=== PATIENT | male | born 1960 | race Caucasian/White ===

== ENCOUNTER → 2018-02-21 13:43 | Outpatient (CLI) | payer OTHER | END | disposition home or self-care (01) | LOC: D.RAD 11:00 → D.RT 13:43 | DX: Z02.71 Encounter for disability determination (principal) ==

== ENCOUNTER 2018-03-18 11:43 | Emergency (ER) | payer MEDICAID ==
[~2018-03-18] VITALS: Ht 175.3 cm; Wt 90.0 kg
[2018-03-18 11:45] VITALS: BP 150/100; Ht 175.3 cm; Wt 90.0 kg
[2018-03-18] MEDS ORDERED: XANAX0.5 MG PO (11:48)
[2018-03-18] MEDS ORDERED: CYCLOBENZAPRINE10 MG PO (11:48)
[2018-03-18] MEDS ORDERED: ALBUTEROL SULF8.5 GM INH (11:49)
[2018-03-18] MEDS ORDERED: OMEPRAZOLE20 M1 PO (11:49)
[2018-03-18] MEDS ORDERED: ALBENZA200 MG PO (11:50)
== END 2018-03-18 14:19 | disposition home or self-care (01) ==
LOC: D.ER 11:43
DX: M54.16 Radiculopathy, lumbar region (principal); S32.019A Unspecified fracture of first lumbar vertebra, initial encounter for closed fracture; S32.049A Unspecified fracture of fourth lumbar vertebra, initial encounter for closed fracture; W10.9XXA Fall (on) (from) unspecified stairs and steps, initial encounter; Y93.89 Activity, other specified; Y92.017 Garden or yard in single-family (private) house as the place of occurrence of the external cause; I10 Essential (primary) hypertension; J44.9 Chronic obstructive pulmonary disease, unspecified; K21.9 Gastro-esophageal reflux disease without esophagitis; M51.36 Other intervertebral disc degeneration, lumbar region; F17.200 Nicotine dependence, unspecified, uncomplicated

== ENCOUNTER → 2018-03-23 16:21 | Outpatient (CLI) | payer MEDICAID ==
[2018-03-18 11:45] VITALS: BMI 29.3
[~2018-03-23 16:21] MED LIST: ALBENZA200 MG PO; ALBUTEROL SULF8.5 GM INH; CYCLOBENZAPRINE10 MG PO; OMEPRAZOLE20 M1 PO; XANAX0.5 MG PO
== END | disposition home or self-care (01) ==
LOC: D.RAD 16:21
DX: M54.2 Cervicalgia (principal)

== ENCOUNTER → 2018-04-25 15:05 | Outpatient (CLI) | payer MEDICAID ==
[2018-03-18 11:45] VITALS: BMI 29.3
== END | disposition home or self-care (01) ==
LOC: D.MRI 04-22 15:00
DX: M50.10 Cervical disc disorder with radiculopathy, unspecified cervical region (principal); M51.9 Unspecified thoracic, thoracolumbar and lumbosacral intervertebral disc disorder

== ENCOUNTER → 2018-05-25 14:41 | Outpatient (CLI) | payer MEDICAID ==
[2018-03-18 11:45] VITALS: BMI 29.3
== END | disposition home or self-care (01) ==
LOC: D.MRI 14:41
DX: M54.12 Radiculopathy, cervical region (principal)

== ENCOUNTER → 2018-06-20 12:26 | Outpatient (CLI) | payer MEDICAID ==
[2018-03-18 11:45] VITALS: BMI 29.3
== END | disposition home or self-care (01) ==
LOC: D.MRI 12:26
PROVIDERS: ATTEND Legal Medicine
DX: R22.2 Localized swelling, mass and lump, trunk (principal)

== ENCOUNTER 2018-10-28 16:40 | Emergency (ER) | payer MEDICAID ==
[~2018-10-28] VITALS: Ht 175.3 cm; Wt 90.0 kg
[2018-10-28 17:13] VITALS: Ht 175.3 cm; Wt 90.0 kg
[2018-10-28] MEDS ORDERED: TRAZODONE HCL150 MG PO (17:17)
[2018-10-28] MEDS ORDERED: NEURONTIN600 MG PO (17:17)
[2018-10-28] MEDS ORDERED: TORADOL10 MG PO (20:38)
[2018-10-28 20:53] VITALS: BP 124/90
== END 2018-10-28 20:53 | disposition home or self-care (01) ==
LOC: D.ER 16:40
DX: S20.211A Contusion of right front wall of thorax, initial encounter (principal); W22.8XXA Striking against or struck by other objects, initial encounter; Y93.89 Activity, other specified; Y92.89 Other specified places as the place of occurrence of the external cause

== ENCOUNTER → 2019-05-09 15:26 | Outpatient (CLI) | payer MEDICAID ==
[2018-10-28 17:13] VITALS: BMI 29.3
[~2019-05-09 15:26] MED LIST changes: +NEURONTIN600 MG PO; +TORADOL10 MG PO; +TRAZODONE HCL150 MG PO
== END | disposition home or self-care (01) ==
LOC: D.MRI 15:26
PROVIDERS: ATTEND Emergency Medicine
DX: M54.2 Cervicalgia (principal); M54.10 Radiculopathy, site unspecified

== ENCOUNTER → 2019-06-01 12:56 | Outpatient (CLI) | payer MEDICAID ==
[2018-10-28 17:13] VITALS: BMI 29.3
== END | disposition home or self-care (01) ==
LOC: D.RAD 12:56
PROVIDERS: ATTEND Emergency Medicine
DX: R05 Cough (principal); R50.9 Fever, unspecified; R63.4 Abnormal weight loss

== ENCOUNTER 2019-06-24 17:15 | Inpatient (IN) | payer MEDICAID ==
[~2019-06-24] VITALS: Ht 175.3 cm; Wt 84.4 kg
--- NOTE | 2019-06-24 20:00 | NUR ---
PT REFUSED ABG.
[2019-06-24 20:13] LABS: BASOPHILS 0.2 % (0-2); EOSINOPHILS 0.7 % (0-7); HEMATOCRIT 41.2 % (42.0-54.0); HEMOGLOBIN 13.7 g/dL (13.5-17.5); IMMATURE GRANULOCYTES 0.3 % (0-5); LYMPHOCYTES 24.5 % (15-50); MCHC 33.3 g/dL (31.0-37.0); MCV 90.4 fL (80.0-100.0); MEAN PLATELET VOLUME 9.4 fL (7.4-10.4); MONOCYTES 6.9 % (2-11); NEUTROPHILS 67.4 % (40-80); PLATELET COUNT 325 10x3/uL (130-400); RBC 4.56 10x6/uL (4.20-6.10); RDW 14.2 % (11.5-14.5)
[2019-06-24 20:26] LABS: CALC OSMOLALITY 277 mosm/kg (275-300); CALCIUM 8.5 mg/dL (8.5-10.1); CARBON DIOXIDE 25.4 mmol/L (21.0-32.0); CHLORIDE - SERUM 105 mmol/L (98-107); CREATININE - SERUM 1.2 mg/dL (0.6-1.3); GLUCOSE 99 mg/dL (74-106); POTASSIUM - SERUM 3.5 mmol/L (3.5-5.1); SODIUM 140 mmol/L (136-145); UREA NITROGEN 11 mg/dL (7-18); eGFR NON AFRICAN AMERICAN 66 mL/min (90-120)
[2019-06-24 20:42] LABS: ALBUMIN 3.5 g/dL (3.4-5.0); ALKALINE PHOSPHATASE 96 U/L (30-120); ALT (SGPT) 22 U/L (10-68); BILIRUBIN - TOTAL 0.22 mg/dL (0.2-1.3); C-REACTIVE PROTEIN 0.7 mg/dL (0.0-0.9); CKMB 0.5 U/L (0.0-3.6); CREATINE KINASE 77 UL (21-232); MAGNESIUM - SERUM 2.1 mg/dL (1.8-2.4)
[2019-06-24 20:45] LABS: TROPONIN-I < 0.017 ng/mL (0.000-0.060)
[2019-06-24 20:55] LABS: INR 0.94 (0.85-1.17); PROTIME 12.5 SECONDS (11.6-15.0)
--- NOTE | 2019-06-24 22:10 | NUR ---
PT RETURNED FROM RADIOLOGY AT THIS TIME. NO DISTRESS NOTED. COLOR WNL FOR RACE. RESPIRATIONS ARE EVEN AND UNLABORED. WILL CONTINUE TO MONITOR.
[2019-06-24 22:17] VITALS: BP 127/94
--- NOTE | 2019-06-24 22:18 | NUR ---
STARTED SECOND LITER NS AT THIS TIME.
[2019-06-25] VITALS (7 sets, daily range): BP systolic 108–165; BP diastolic 72–87; BMI 27.5
--- NOTE | 2019-06-25 05:31 | NUR ---
PATIENT LEFT FLOOR TO GO AND SMOKE. WILL AWAIT RETURN.
--- NOTE | 2019-06-25 05:40 | NUR ---
PATIENT RETURNED TO FLOOR. CALL LIGHT IN PLACE. WILL CONTINUE TO MONITOR.
[2019-06-25 06:26] LABS: BASOPHILS 0.1 % (0-2); EOSINOPHILS 0 % (0-7); HEMATOCRIT 37.8 % (42.0-54.0); HEMOGLOBIN 12.3 g/dL (13.5-17.5); IMMATURE GRANULOCYTES 0.1 % (0-5); LYMPHOCYTES 9.6 % (15-50); MCH 29.6 pg (26.0-34.0); MCHC 32.5 g/dL (31.0-37.0); MCV 91.1 fL (80.0-100.0); MEAN PLATELET VOLUME 9.6 fL (7.4-10.4); MONOCYTES 1.8 % (2-11); NEUTROPHILS 88.4 % (40-80); PLATELET COUNT 306 10x3/uL (130-400); RBC 4.15 10x6/uL (4.20-6.10); RDW 14.5 % (11.5-14.5)
[2019-06-25 06:37] LABS: ANION GAP 15.6 mmol/L (8-16); CALCIUM 8.2 mg/dL (8.5-10.1); CARBON DIOXIDE 21.2 mmol/L (21.0-32.0); CREATININE - SERUM 1.2 mg/dL (0.6-1.3); POTASSIUM - SERUM 3.8 mmol/L (3.5-5.1)
[2019-06-25 06:39] LABS: WBC 7.4 10x3/uL (4.8-10.8)
--- NOTE | 2019-06-25 08:02 | NUR ---
ALERT AND ORIENTED. C/O HEADACHE. NO S/S OF ACUTE DISTRESS NOTED. IV TO RIGHT AC, NS INFUSING @ 100ML/HR. SITE PATENT WITHOUT REDNESS OR SWELLING. SPIDER BITE TO BUTTOCK, HEALING. PATIENT STATED IT HAPPENED ABOUT 1 MONTH AGO. DENIES ANY NEEDS AT THIS TIME. CALL LIGHT IN REACH. WILL CONTINUE TO MONITOR.
--- NOTE | 2019-06-25 12:47 | NUR ---
I have reviewed this patient and I concur with the Shift Assessment completed by the Licensed Practical Nurse today this shift.
--- NOTE | 2019-06-25 18:20 | NUR ---
ALERT AND ORIENTED. NO C/O PAIN. NO S/S OF ACUTE DISTRESS NOTED. DENIES ANY NEEDS AT THIS TIME. CALL LIGHT IN REACH. WILL CONTINUE TO MONITOR.
--- NOTE | 2019-06-25 20:00 | NUR ---
ALERT SITTING UP IN BED, REPORTS GOOD PAIN RELIEF AFTER PAIN MED, SEE SHIFT ASSESSMENT, CALL LIGHT IN REACH
[2019-06-26] VITALS: BP 110/73
[2019-06-26 04:00] VITALS: BP 136/78
[2019-06-26 05:10] LABS: HEMATOCRIT 37.1 % (42.0-54.0); HEMOGLOBIN 11.8 g/dL (13.5-17.5); MCH 29.4 pg (26.0-34.0); MCHC 31.8 g/dL (31.0-37.0); MCV 92.3 fL (80.0-100.0); MEAN PLATELET VOLUME 9.7 fL (7.4-10.4); PLATELET COUNT 314 10x3/uL (130-400); RBC 4.02 10x6/uL (4.20-6.10); RDW 14.5 % (11.5-14.5); WBC 21.1 10x3/uL (4.8-10.8)
[2019-06-26 05:54] LABS: CALC OSMOLALITY 289 mosm/kg (275-300); CALCIUM 8.5 mg/dL (8.5-10.1); CARBON DIOXIDE 26.2 mmol/L (21.0-32.0); CHLORIDE - SERUM 109 mmol/L (98-107); GLUCOSE 126 mg/dL (74-106); POTASSIUM - SERUM 4.3 mmol/L (3.5-5.1); SODIUM 144 mmol/L (136-145); eGFR NON AFRICAN AMERICAN 81 mL/min (90-120)
[2019-06-26 06:13] LABS: UREA NITROGEN 14 mg/dL (7-18)
--- NOTE | 2019-06-26 07:05 | NUR ---
ALERT AND ORIENTED. NO C/O PAIN. NO S/S OF ACUTE DISTRESS NOTED. IV TO RIGHT UPPER ARM, NS INFUSING @ 100ML/HR. SITE PATENT WITHOUT REDNESS OR SWELLING. ON TELEMETRY 85 SR. DENIES ANY NEEDS AT THIS TIME. CALL LIGHT IN REACH. WILL CONTINUE TO MONITOR.
[2019-06-26 09:25] VITALS: BP 125/76
[2019-06-26 09:46] LABS: LYMPHOCYTES 10 % (15-50); MONOCYTES 10 % (2-11); NEUTROPHILS 79 % (40-80); PLATELET ESTIMATE NORMAL
[2019-06-26 09:47] LABS: ROULEAUX OCC
--- NOTE | 2019-06-26 11:11 | NUR ---
I have reviewed this patient and I concur with the Shift Assessment completed by the Licensed Practical Nurse today this shift.
--- NOTE | 2019-06-26 11:16 | NUR ---
PERIPHERAL IV TO RIGHT UPPER ARM INFILTRATED. DISCONTINUED WITH CATHETER TIP INTACT. RESITED IV TO LEFT WRIST, 22 GA X2 STICKS. BLOOD RETURN VISIBLE.
[2019-06-26 12:14] VITALS: BP 126/75
--- NOTE | 2019-06-26 16:37 | MORECARE ---
CASE MANAGEMENT DISCHARGE SUMMARY PATIENT: THONY TONEY UNIT: [id number] ADM DATE: 06/24/19 AGE: 59 : 62 SEX: M ROOM/BED: D.2236 AUTHOR: LAURA,DOC PHYSICIAN: REFERRING PHYSICIAN: ERICK LIZARRAGA MD DATE OF SERVICE: 06/26/19 Discharge Plan Patient Name: THONY TONEY Facility: [facility]:[place] : 1960 Planned Disposition: Home Anticipated Discharge Date: Discharge Date: Expected LOS: Initial Reviewer: [email or web address] Initial Review Date: 06/26/2019 Generated: 06/26/19 5:36 pm Comments DCP- Discharge Planning Updated by [email or web address]: Acacia Augustin on 06/26/19 3:[address] Patient Name: THONY TONEY Admission Status: ER Accout number: [id number] Admission Date: 06-24-2019 : 1960 Admission Diagnosis: Attending: FABIÁN Current LOS: 2 Anticipated DC Date: Planned Disposition: Home Primary Insurance: MEDICAID [place] Discharge Planning Comments: CM met with patient to complete initial dc planning assessment. CM educated patient on the CM role and verbal consent given by patient to complete assessment. Patient lives at home with his ex and many family members. At discharge patient plans to return and feels this is a safe discharge. CM discussed availability of home health, rehab services, and medical equipment. Patient denied known discharge needs at this time. States his daughter will take him home. CM will continue to follow and will assist as needed with dc plans/needs. Juice Packaging Machines Setter: Acacia Augustin DCPIA - Discharge Planning Initial Assessment Updated by [email or web address]: Acacia Augustin on 06/26/19 4:34 pm * Is the patient Alert and Oriented? Yes * How many steps to enter\exit or inside your home? 2/0 * PCP Dr. Lizarraga * Pharmacy [facility] [address] * Preadmission Environment Home with Family * ADLs Independent * Equipment Cane Walker * List name and contact numbers for known caregivers / representatives who currently or will assist patient after discharge: [facility] - [phone] * Verbal permission to speak to the caregivers and representatives has been obtained from the patient. Yes * Community resources currently utilized None * Additional services required to return to the preadmission environment? No * Can the patient safely return to the preadmission environment? Yes * Has this patient been hospitalized within the prior 30 days at any hospital? No Patient Name: THONY TONEY Page [id number] at 1637 All edits/amendments must be made on the electronic document DICTATION DATE: 06/26/191635 ROUTE SALES SPECIALIST: VIKASH 06/26/191635 RPT#: [id number] DC DATE: STATUS: ADM IN [facility] [address] [place] [address] END OF REPORT
[2019-06-26 17:39] VITALS: BP 107/69
--- NOTE | 2019-06-26 18:21 | NUR ---
ALERT AND ORIENTED. NO C/O PAIN. NO S/S OF ACUTE DISTRESS NOTED. DENIES ANY NEEDS AT THIS TIME. CALL LIGHT IN REACH. WILL CONTINUE TO MONITOR.
[2019-06-26 21:48] VITALS: BP 123/83
--- NOTE | 2019-06-27 00:42 | NUR ---
ELECTRODES PULLED OFF BY PT, REPLACED AND IN WORKING ORDER
[2019-06-27 01:07] VITALS: BP 137/74
[2019-06-27 05:19] LABS: BASOPHILS 0 % (0-2); EOSINOPHILS 0 % (0-7); HEMATOCRIT 38.2 % (42.0-54.0); HEMOGLOBIN 11.9 g/dL (13.5-17.5); IMMATURE GRANULOCYTES 0.6 % (0-5); LYMPHOCYTES 3.9 % (15-50); MCH 29.5 pg (26.0-34.0); MCHC 31.2 g/dL (31.0-37.0); NEUTROPHILS 92.5 % (40-80); PLATELET COUNT 353 10x3/uL (130-400); RBC 4.03 10x6/uL (4.20-6.10); RDW 14.7 % (11.5-14.5); WBC 19.8 10x3/uL (4.8-10.8)
[2019-06-27 05:22] LABS: MCV 94.8 fL (80.0-100.0)
[2019-06-27 05:32] LABS: CALCIUM 8.2 mg/dL (8.5-10.1); CHLORIDE - SERUM 105 mmol/L (98-107); CREATININE - SERUM 1.2 mg/dL (0.6-1.3); SODIUM 141 mmol/L (136-145); UREA NITROGEN 16 mg/dL (7-18); eGFR NON AFRICAN AMERICAN 66 mL/min (90-120)
[2019-06-27 05:33] LABS: CALC OSMOLALITY 285 mosm/kg (275-300); GLUCOSE 176 mg/dL (74-106); POTASSIUM - SERUM 3.4 mmol/L (3.5-5.1)
[2019-06-27 06:00] VITALS: BP 164/85
--- NOTE | 2019-06-27 07:31 | NUR ---
PATIENT REQUESTS A TALHA WATKINS. HAS EAR PHONES IN LISTENING TO MUSIC. SHIFT REPORT RECEIVED. CL IN REACH. TM
--- NOTE | 2019-06-27 09:00 | NUR ---
22 G IV THERAPY INFILTRATED IN LEFT FOREARM. RESTARTED WITH A 20 G IN LEFT FOREARM ONE ATTEMPT. CL IN REACH. WCTM
[2019-06-27 09:12] VITALS: BP 126/78
[2019-06-27 13:06] VITALS: BP 117/77
--- NOTE | 2019-06-27 13:26 | NUR ---
I have reviewed this patient and I concur with the Shift Assessment completed by the Licensed Practical Nurse today this shift.
--- NOTE | 2019-06-27 13:58 | NUR ---
PATIENT SITTING ON SIDE OF BED WATCHING TV. CL IN REACH. NO NEEDS AT THIS TIME. WCTM
--- NOTE | 2019-06-27 14:47 | NUR ---
WAS INFORMED PATIENT WANTED TO SEE ME. WENT TO ROOM WHEN I WAS DONE WITH THE PATIENT I WAS WITH. IV THERAPY IS OFF AND IN ROOM. PATIENT IS NOT IN ROOM.
[2019-06-27 17:03] VITALS: BP 138/88
--- NOTE | 2019-06-27 18:25 | NUR ---
PATIENT PROVIDED AN ISS. VERBALIZED UNDERSTANDING ON ITS USE. REQUESTED AND RECEIVED IMODIUM PER DR OCAMPO. DR OCAMPO STATED THE SKIN TAG/MOLE ON PATIENT CAN BE FROZEN OFF AT THE CLINIC. CL IN REACH. TM
--- NOTE | 2019-06-27 19:54 | NUR ---
PATIENT RESTING IN BED AND DENIES NEEDS AT THIS TIME. BED IN LOWEST POSITION AND CALL LIGHT WITHIN REACH. ENCOURAGED THE PATIENT TO CALL IF HE HAS NEEDS. WILL CONTINUE TO MONITOR.
[2019-06-27 20:00] VITALS: BP 137/88
--- NOTE | 2019-06-27 21:30 | NUR ---
ADMINISTERED MEDS PER ORDERS. PATIENT DENIES OTHER NEEDS AT THIS TIME. WILL CONTINUE TO MONITOR.
[2019-06-28] VITALS: BP 154/941
[2019-06-28 04:00] VITALS: BP 145/87
--- NOTE | 2019-06-28 07:00 | NUR ---
ALERT AND ORIENTED. NO C/O PAIN. NO S/S OF ACUTE DISTRESS NOTED. IV TO LEFT WRIST, NS INFUSING @ 100ML/HR. SITE PATENT WITHOUT REDNESS OR SWELLING. PRODUCTIVE COUGH. ON LOVENOX. NICOTINE PATCH TO RIGHT SHOULDER. BRUISING TO RIGHT UPPER ARM D/T IV INFILTRATION. ON TELEMETRY 94 SR. DENIES ANY NEEDS AT THIS TIME. CALL LIGHT IN REACH. WILL CONTINUE TO MONITOR.
[2019-06-28 09:06] VITALS: BP 147/91
[2019-06-28 12:50] VITALS: BP 128/77
[2019-06-28 14:38] VITALS: Ht 175.3 cm; Wt 84.4 kg
[2019-06-28 16:44] VITALS: BP 145/100
--- NOTE | 2019-06-28 18:19 | NUR ---
ALERT AND ORIENTED. NO C/O PAIN. NO S/S OF ACUTE DISTRESS NOTED. DENIES ANY NEEDS AT THIS TIME. CALL LIGHT IN REACH. WILL CONTINUE TO MONITOR.
--- NOTE | 2019-06-28 19:25 | NUR ---
MEDICATED WITH MORPHINE FOR C/O PAIN IN NECK RATING 10. ALERT AND ORIENTED X4. TALKATIVE WITH FLIGHT OF IDEAS. RESP IRREG. SOB WITH EXERTION. NONPROD COUGH. TELEMETRY SHOWS SR WITH RATE OF 83. AMBULATORY. NS @ 100 MLHR INFUSING IN LT WRIST. REFUSED SCDS. CL IN REACH.
[2019-06-28 20:00] VITALS: BP 124/94
--- NOTE | 2019-06-28 20:58 | NUR ---
IV LEAKING. IV CATH REMOVED. 22G INSERTED IN LT FOREARM X1 ATTEMPT.
--- NOTE | 2019-06-28 21:00 | NUR ---
SHOWER AT THIS TIME.
--- NOTE | 2019-06-28 23:50 | NUR ---
MEDICATED WITH MORPHINE FOR C/O PAIN IN NECK RATING 9. CL IN REACH.
--- NOTE | 2019-06-29 03:45 | NUR ---
HAS SLEPT WELL SO FAR THIS SHIFT. NO DISTRESS. CL IN REACH.
[2019-06-29 04:00] VITALS: BP 137/78
--- NOTE | 2019-06-29 05:33 | NUR ---
C/O H/A AND REQUESTS [facility]. REQUEST GRANTED.
[2019-06-29 06:33] LABS: BASOPHILS 0.1 % (0-2); EOSINOPHILS 0 % (0-7); HEMATOCRIT 34.1 % (42.0-54.0); HEMOGLOBIN 11.2 g/dL (13.5-17.5); IMMATURE GRANULOCYTES 1.7 % (0-5); LYMPHOCYTES 8.7 % (15-50); MCH 30.5 pg (26.0-34.0); MCHC 32.8 g/dL (31.0-37.0); MCV 92.9 fL (80.0-100.0); MEAN PLATELET VOLUME 9.8 fL (7.4-10.4); MONOCYTES 6.4 % (2-11); NEUTROPHILS 83.1 % (40-80); PLATELET COUNT 302 10x3/uL (130-400); RBC 3.67 10x6/uL (4.20-6.10); RDW 14.6 % (11.5-14.5); WBC 14.7 10x3/uL (4.8-10.8)
[2019-06-29 06:58] LABS: ANION GAP 14.2 mmol/L (8-16); CALCIUM 7.7 mg/dL (8.5-10.1); CARBON DIOXIDE 23.9 mmol/L (21.0-32.0); CREATININE - SERUM 1.1 mg/dL (0.6-1.3); POTASSIUM - SERUM 4.1 mmol/L (3.5-5.1)
--- NOTE | 2019-06-29 07:15 | NUR ---
PT SITTING UP IN BED WATCHING TV. IV LOCATED TO LEFT FOREARM CURRENTLY RUNNING NS @ 100ML/HR. BECOMES SHORT OF BREATH WHEN TALKING AND GETTING EXCITED. NO S/S OF DISTRESS NOTED AT THIS TIME, DENIES CURRENT NEEDS, WILL CONT TO MONITOR.
[2019-06-29] MEDS ORDERED: LEVOFLOXACIN500 MG PO (07:17)
[2019-06-29] MEDS ORDERED: MEDROL DOSE PACK4 MG PO (07:17)
[2019-06-29 09:06] VITALS: BP 140/90
--- NOTE | 2019-06-29 09:11 | MORECARE ---
CASE MANAGEMENT DISCHARGE SUMMARY PATIENT: THONY TONEY UNIT: [id number] ADM DATE: 06/24/19 AGE: 59 : 62 SEX: M ROOM/BED: D.2236 AUTHOR: LAURADOC PHYSICIAN: REFERRING PHYSICIAN: ERICK LIZARRAGA MD DATE OF SERVICE: 06/29/19 Discharge Plan Patient Name: THONY TONEY Facility: [facility]:[place] : 1960 Planned Disposition: Home Anticipated Discharge Date: Discharge Date: Expected LOS: Initial Reviewer: [email or web address] Initial Review Date: 06/26/2019 Generated: 06/29/19 10:10 am Comments DCP- Discharge Planning Updated by [email or web address]: Acacia Augustin on 06/29/19 8:[address] Patient Name: THONY TONEY Encounter No: [id number] : 1960 Primary Insurance: MEDICAID [place] Anticipated DC Date: Planned Disposition: Home External Planned Provider: : DCP follow-up note: Patient in agreement with discharge plan. No changes to plan. Case management will follow and assist as needed. Acacia Augustin DCP- Discharge Planning Updated by [email or web address]: Acacia Augustin on 06/26/19 3:[address] Patient Name: THONY TONEY Admission Status: ER Accout number: [id number] Admission Date: 06-24-2019 : 1960 Admission Diagnosis: Attending: FABIÁN Current LOS: 2 Anticipated DC Date: Planned Disposition: Home Primary Insurance: MEDICAID [place] Discharge Planning Comments: CM met with patient to complete initial dc planning assessment. CM educated patient on the CM role and verbal consent given by patient to complete assessment. Patient lives at home with his ex and many family members. At discharge patient plans to return and feels this is a safe discharge. CM discussed availability of home health, rehab services, and medical equipment. Patient denied known discharge needs at this time. States his daughter will take him home. CM will continue to follow and will assist as needed with dc plans/needs. Top Bottom Attaching Machine Operator: Acacia Augustin DCPIA - Discharge Planning Initial Assessment Updated by [email or web address]: Acacia Augustin on 06/26/19 4:34 pm * Is the patient Alert and Oriented? Yes * How many steps to enter\exit or inside your home? 2/0 * PCP Dr. Lizarraga * [place] [facility] [facility] [address] * Preadmission Environment Home with Family * ADLs Independent * Equipment Cane Walker * List name and contact numbers for known caregivers / representatives who currently or will assist patient after discharge: [facility] - [phone] * Verbal permission to speak to the caregivers and representatives has been obtained from the patient. Yes * Community resources currently utilized None * Additional services required to return to the preadmission environment? No * Can the patient safely return to the preadmission environment? Yes * Has this patient been hospitalized within the prior 30 days at any hospital? No Last DP export: 06/26/19 3:37 p Patient Name: THONY TONEY Page 53255 at 0911 All edits/amendments must be made on the electronic document DICTATION DATE: 06/29/19909 CRAP SHOOTER: VIKASH 06/29/19909 RPT#: [id number] DC DATE: STATUS: ADM IN [facility] [address] [place] [address] END OF REPORT
--- NOTE | 2019-06-29 10:20 | NUR ---
PT DC`D VIA WHEELCHAIR, HOSPITAL STAFF HOME WITH FRIENDS.
--- NOTE | 2019-06-30 14:04 | MORECARE ---
CASE MANAGEMENT DISCHARGE SUMMARY PATIENT: THONY TONEY UNIT: [id number] ADM DATE: 06/24/19 AGE: 59 : 62 SEX: M ROOM/BED: D.2236 AUTHOR: LAURA,DOC PHYSICIAN: REFERRING PHYSICIAN: ERICK LIZARRAGA MD DATE OF SERVICE: 06/30/19 Discharge Plan Patient Name: THONY TONEY Facility: [facility]:[place] : 1960 Planned Disposition: Home Anticipated Discharge Date: Discharge Date: 06/29/2019 Expected LOS: 0 Initial Reviewer: [email or web address] Initial Review Date: 06/26/2019 Generated: 06/30/19 3:03 pm Comments DCP- Discharge Planning Updated by [email or web address]: Acacia Augustin on 06/29/19 8:[address] Patient Name: THONY TONEY Encounter No: [id number] : 1960 Primary Insurance: MEDICAID [place] Anticipated DC Date: Planned Disposition: Home External Planned Provider: : DCP follow-up note: Patient in agreement with discharge plan. No changes to plan. Case management will follow and assist as needed. Acacia Augustin DCP- Discharge Planning Updated by [email or web address]: Acacia Augustin on 06/26/19 3:[address] Patient Name: THONY TONEY Admission Status: ER Accout number: [id number] Admission Date: 06-24-2019 : 1960 Admission Diagnosis: Attending: FABIÁN Current LOS: 2 Anticipated DC Date: Planned Disposition: Home Primary Insurance: MEDICAID [place] Discharge Planning Comments: CM met with patient to complete initial dc planning assessment. CM educated patient on the CM role and verbal consent given by patient to complete assessment. Patient lives at home with his ex and many family members. At discharge patient plans to return and feels this is a safe discharge. CM discussed availability of home health, rehab services, and medical equipment. Patient denied known discharge needs at this time. States his daughter will take him home. CM will continue to follow and will assist as needed with dc plans/needs. Material Reclaimer: Acacia Augustin DCPIA - Discharge Planning Initial Assessment Updated by [id number]: Acacia Augustin on 06/26/19 4:34 pm * Is the patient Alert and Oriented? Yes * How many steps to enter\exit or inside your home? 2/0 * PCP Dr. Lizarraga * Pharmacy [facility] [address] * Preadmission Environment Home with Family * ADLs Independent * Equipment Cane Walker * List name and contact numbers for known caregivers / representatives who currently or will assist patient after discharge: Sonia [facility] - [phone] * Verbal permission to speak to the caregivers and representatives has been obtained from the patient. Yes * Community resources currently utilized None * Additional services required to return to the preadmission environment? No * Can the patient safely return to the preadmission environment? Yes * Has this patient been hospitalized within the prior 30 days at any hospital? No Last DP export: 06/29/19 8:11 a Patient Name: THONY TONEY Page 65839 at 1404 All edits/amendments must be made on the electronic document DICTATION DATE: 06/30/19 1403 RENAL NURSE: VIKASH 06/30/19 1403 RPT#: [id number] DC DATE:06/29/19 STATUS: DIS IN [facility] [address] [place] [address] END OF REPORT
== END 2019-06-29 10:21 | disposition home or self-care (01) | DRG 195 ==
LOC: D.ER 17:15 → D.MS 22:17
PROVIDERS: Family Medicine; Legal Medicine; ADMIT Emergency Medicine; ATTEND Emergency Medicine
DX: J18.9 Pneumonia, unspecified organism (principal); I10 Essential (primary) hypertension; K21.9 Gastro-esophageal reflux disease without esophagitis; S16.1XXA Strain of muscle, fascia and tendon at neck level, initial encounter; V03.10XA Pedestrian on foot injured in collision with car, pick-up truck or van in traffic accident, initial encounter; J44.9 Chronic obstructive pulmonary disease, unspecified